=== PATIENT | male | born 1955 | race Caucasian/White ===

== ENCOUNTER 2019-03-05 20:46 | Emergency (ER) | payer OTHER, BC ==
[2019-03-05] MEDS ORDERED: Diphtheria,Pertussis(Acell),Tetanus Vaccine 0.5 ML Syringe IM ONE (21:09)
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
== END 2019-03-05 21:34 | disposition home or self-care (01) ==
LOC: JD.ED 20:46
DX: S00.01XA Abrasion of scalp, initial encounter (principal); V68.5XXA Driver of heavy transport vehicle injured in noncollision transport accident in traffic accident, initial encounter; Y92.410 Unspecified street and highway as the place of occurrence of the external cause
CPT/HCPCS: 90471; 90715; 99282; 99284-25